=== PATIENT | male | born 1995 | race Caucasian/White ===

== ENCOUNTER 2023-05-21 23:52 | Inpatient (IN) | payer MEDICAID ==
[~2023-05-21] VITALS: Ht 188 cm; Wt 81.8 kg
[2023-05-22] MEDS: normal saline 1000ML IV soln IV ONE (01:42)
[2023-05-22] MEDS: piperacillin/tazo 3.375gm/50ml 50 ML IV ONE (01:42)
[2023-05-22] MEDS: VANCOMYCIN 1,500MG in normal saline IV soln 300 ML IV ONE (02:03)
[2023-05-22 02:08] LABS: BASOPHILS # (AUTO) 0.1 X10'3 (0-0.2); BASOPHILS % (AUTO) 0.4 % (0-1); EOSINOPHILS # (AUTO) 0.1 X10'3 (0-0.9); EOSINOPHILS % (AUTO) 1.1 % (0-6); HEMATOCRIT 35.5 % (42.0-52.0); HEMOGLOBIN 11.8 g/dl (14.0-17.9); LYMPHOCYTES % (AUTO) 16.7 % (21-51); MEAN CORPUSCULAR HEMOGLOBIN 29.3 PG (27.0-31.0); MEAN CORPUSCULAR HGB CONC 33.2 g/dL (33.0-36.5); MEAN CORPUSCULAR VOLUME 88.1 FL (78-98); MEAN PLATELET VOLUME 7.2 FL (7.4-10.4); MONOCYTES # (AUTO) 1.5 X10'3 (0-0.9); MONOCYTES % (AUTO) 12.7 % (2-12); NEUTROPHILS # (AUTO) 8.1 X10'3 (1.8-7.7); NEUTROPHILS % (AUTO) 69.1 % (42-75); PLATELET COUNT 352 X10'3 (140-440); RED BLOOD COUNT 4.03 X10'6 (4.70-6.10); RED CELL DISTRIBUTION WIDTH 12.5 % (11.5-14.5); WHITE BLOOD COUNT 11.7 X10'3 (4.5-11.0)
[2023-05-22 02:41] LABS: ALBUMIN 2.3 G/DL (3.4-5.0); ANION GAP 8 (8-16); BLOOD UREA NITROGEN 7 MG/DL (7-18); BUN/CREATININE RATIO 7.2 (10.0-20.0); C-REACTIVE PROTEIN 5.07 MG/DL (0.0-0.5); CALCIUM 8.3 MG/DL (8.5-10.1); CHLORIDE 105 MMOL/L (99-107); CREATININE 0.97 MG/DL (0.60-1.10); GLUCOSE 103 MG/DL (70-104); MAGNESIUM 1.8 MG/DL (1.5-2.4); POTASSIUM 3.4 MMOL/L (3.5-5.1); SODIUM 141 MMOL/L (135-145); TOTAL CARBON DIOXIDE 28.1 MMOL/L (24-32); eCRCL 129 ML/MIN; eGFR > 90 ML/MIN
[2023-05-22] MEDS ORDERED: magnesium 2GM in 50ml NS 50 ML IV PRN (04:10)
[2023-05-22] MEDS ORDERED: magnesium hydroxide 30ml (MOM) UD suspension PO PRN (04:10)
[2023-05-22] MEDS ORDERED: magnesium Cl slow-release 64mg tablet PO PRN (04:10)
[2023-05-22] MEDS ORDERED: mag hydrox/Alum hydrox/simeth 30ml oral suspension PO PRN (04:10)
[2023-05-22] MEDS ORDERED: acetaminophen 325mg tablet PO PRN (04:10)
[2023-05-22] MEDS ORDERED: ondansetron/PF 4mg/2ml inj IV PRN (04:10)
[2023-05-22] MEDS ORDERED: potassium Cl 20 mEq SR tablet PO PRN (04:10)
[2023-05-22] MEDS ORDERED: magnesium 4gm in 100ml NS 100 ML IV PRN (04:10)
[2023-05-22] MEDS: normal saline 1000ml 1,000 ML IV SCH (04:25)
[2023-05-22 05:59] LABS: BILIRUBIN,URINE NEGATIVE (Neg); CLARITY,URINE CLEAR (Clear); COLOR,URINE STRAW (Yellow); GLUCOSE, URINE NEGATIVE (Neg); KETONES,URINE NEGATIVE (Neg); LEUKOCYTE ESTERASE ,URINE NEGATIVE (Neg); NITRITES, URINE NEGATIVE (Neg); OCCULT BLOOD,URINE NEGATIVE (Neg); PROTEIN,URINE NEGATIVE (Neg); UROBILINOGEN,URINE 0.2 E.U/dL (0.2-1.0)
[2023-05-22 06:04] LABS: UA COLLECTION TYPE CLN CATCH MIDSTREAM
[2023-05-22 06:07] LABS: URINE AMPHETAMINE SCREEN POSITIVE (Neg); URINE BARBITUATE SCREEN NEGATIVE (Neg); URINE BENZODIAZEPINES SCREEN NEGATIVE (Neg); URINE CANNABINOID SCREEN NEGATIVE (Neg); URINE COCAINE SCREEN NEGATIVE (Neg); URINE METHADONE SCREEN NEGATIVE (Neg); URINE OPIATE SCREEN NEGATIVE (Neg); URINE PHENCYCLIDINE SCREEN NEGATIVE (Neg)
[2023-05-22] MEDS: docusate sod 100mg capsule PO SCH (08:00)
[2023-05-22] MEDS: heparin, porcine 5000 units/ml vial SQ SCH (08:00)
[2023-05-22] MEDS: potassium Cl 40MEQ/1/2NS 520ml 520 ML IV PRN (08:17)
[2023-05-22] MEDS: K and/or MAG REPLACEMENT MC SCH (08:18)
[2023-05-22] MEDS: piperacillin/tazo 4.5gm/100ml 100 ML IV SCH (10:00)
[2023-05-22] MEDS: vancomycin/NS 1 GM ADD-VANTAGE 250 ML IV SCH (10:16)
[2023-05-22 13:03] VITALS: BP 148/78; PULSE 75; RESP 16; TEMP 98.3; O2SAT 99
[2023-05-22 16:44] VITALS: BP 140/85; PULSE 87; RESP 16; O2SAT 97
[2023-05-22 17:10] VITALS: RESP 16
[2023-05-22 18:00] VITALS: BP 134/80; PULSE 86; RESP 15; TEMP 98; O2SAT 96
[2023-05-22 20:00] VITALS: RESP 17; O2SAT 99
[2023-05-22 21:47] VITALS: BP 144/74; PULSE 87; RESP 16; TEMP 99.8; O2SAT 99
[2023-05-23] VITALS (19 sets, daily range): BP systolic 105–138; BP diastolic 42–79; PULSE 53–85; RESP 14–18; TEMP 97.8–98; O2SAT 95–99
[2023-05-23] MEDS: morphine 2 MG/ML inj. syringe IV PRN ×2 (05:27→11:12)
[2023-05-23] MEDS ORDERED: LEVE10006 PO (05:46)
[2023-05-23 07:12] LABS: BASOPHILS % (AUTO) 0.6 % (0-1); EOSINOPHILS # (AUTO) 0.5 X10'3 (0-0.9); EOSINOPHILS % (AUTO) 7.2 % (0-6); HEMATOCRIT 38.3 % (42.0-52.0); HEMOGLOBIN 12.7 g/dl (14.0-17.9); LYMPHOCYTES # (AUTO) 1.3 X10'3 (1.1-4.8); LYMPHOCYTES % (AUTO) 19.6 % (21-51); MEAN CORPUSCULAR HEMOGLOBIN 29.5 PG (27.0-31.0); MEAN CORPUSCULAR HGB CONC 33.2 g/dL (33.0-36.5); MEAN CORPUSCULAR VOLUME 88.7 FL (78-98); MEAN PLATELET VOLUME 7.3 FL (7.4-10.4); MONOCYTES # (AUTO) 0.6 X10'3 (0-0.9); MONOCYTES % (AUTO) 9.1 % (2-12); NEUTROPHILS # (AUTO) 4.1 X10'3 (1.8-7.7); NEUTROPHILS % (AUTO) 63.5 % (42-75); PLATELET COUNT 390 X10'3 (140-440); RED BLOOD COUNT 4.31 X10'6 (4.70-6.10); RED CELL DISTRIBUTION WIDTH 12.3 % (11.5-14.5); WHITE BLOOD COUNT 6.5 X10'3 (4.5-11.0)
[2023-05-23 07:17] LABS: INR 1.1 INR; PROTHROMBIN TIME 11.5 SECONDS (9.0-12.0)
[2023-05-23 07:27] LABS: ALANINE AMINOTRANSFERASE 12 U/L (12-78); ALBUMIN 2.3 G/DL (3.4-5.0); ALBUMIN/GLOBULIN RATIO 0.5 (1.1-1.5); ALKALINE PHOSPHATASE 80 IU/L (46-116); ANION GAP 5 (8-16); ASPARTATE AMINO TRANSFERASE 14 U/L (10-37); BILIRUBIN,TOTAL 0.6 MG/DL (0.1-1.0); BLOOD UREA NITROGEN 6 MG/DL (7-18); BUN/CREATININE RATIO 6.5 (10.0-20.0); CALCIUM 8.5 MG/DL (8.5-10.1); CHLORIDE 103 MMOL/L (99-107); CREATININE 0.93 MG/DL (0.60-1.10); GLUCOSE 85 MG/DL (70-104); MAGNESIUM 1.8 MG/DL (1.5-2.4); PHOSPHORUS 3.5 MG/DL (2.3-4.5); POTASSIUM 3.4 MMOL/L (3.5-5.1); SODIUM 138 MMOL/L (135-145); TOTAL CARBON DIOXIDE 29.8 MMOL/L (24-32); eCRCL 134 ML/MIN; eGFR > 90 ML/MIN
[2023-05-23] MEDS: VANCOMYCIN LEVEL IV ONE ×2 (09:42→20:43)
[2023-05-23] MEDS: levetiracetam inj 1,000 MG in normal saline 100ml IV soln 100 ML IV SCH (13:15)
[2023-05-23] MEDS ORDERED: fentaNYL/PF 50MCG/1 ML 2ML syringe IV PRN ×2 (16:35)
[2023-05-23] MEDS: ringers solution, lacted 1,000 ML IV SCH (16:35)
[2023-05-23] MEDS ORDERED: hydrALAZINE 20mg/ml inj. IV PRN (16:35)
[2023-05-23] MEDS ORDERED: morphine 4 MG/ML inj SYRINge IV PRN (16:35)
[2023-05-23] MEDS ORDERED: ondansetron/PF 4mg/2ml inj IV PRN (16:35)
[2023-05-23] MEDS ORDERED: labetalol 20mg/4ml (5mg/ml) syringe IV PRN (16:35)
[2023-05-23] MEDS ORDERED: morphine 2 MG/ML inj. syringe IV PRN (16:35)
[2023-05-23] MEDS ORDERED: vancomycin 1,000mg inj ONE (17:16)
[2023-05-23] MEDS ORDERED: sevoflurane 250ml liquid IH ONE (17:35)
[2023-05-23] MEDS ORDERED: fentaNYL/PF 50MCG/1 ML 2ML syringe ONE (17:45)
[2023-05-23] MEDS ORDERED: midazolam 1 mg/ML 2ml injection ONE (17:47)
[2023-05-23] MEDS ORDERED: propofol inj 20 ML IV ONE (17:52)
[2023-05-23] MEDS ORDERED: ondansetron/PF 4mg/2ml inj ONE (17:52)
[2023-05-23] MEDS ORDERED: LIDOcaine 1%/PF 5ML 10 MG/ML VIAL ONE (17:52)
[2023-05-23] MEDS: potassium Cl 20 mEq SR tablet PO PRN (20:28)
[2023-05-23] MEDS: nicotine 14mg patch - 24hr TD SCH (20:34)
[2023-05-23] MEDS: hydrocortisone 2.5% cream 28.4gm TP SCH (21:16)
[2023-05-24 02:00] VITALS: BP 119/60; PULSE 70; RESP 18; TEMP 98.7; O2SAT 97
[2023-05-24 06:47] LABS: BASOPHILS % (AUTO) 0.1 % (0-1); EOSINOPHILS % (AUTO) 0 % (0-6); LYMPHOCYTES % (AUTO) 10.7 % (21-51); MEAN CORPUSCULAR HEMOGLOBIN 29.4 PG (27.0-31.0); MEAN CORPUSCULAR HGB CONC 33.4 g/dL (33.0-36.5); MEAN CORPUSCULAR VOLUME 88.2 FL (78-98); MEAN PLATELET VOLUME 7.3 FL (7.4-10.4); MONOCYTES # (AUTO) 0.4 X10'3 (0-0.9); MONOCYTES % (AUTO) 4.1 % (2-12); NEUTROPHILS # (AUTO) 7.6 X10'3 (1.8-7.7); NEUTROPHILS % (AUTO) 85.1 % (42-75); PLATELET COUNT 464 X10'3 (140-440); RED BLOOD COUNT 4.42 X10'6 (4.70-6.10); RED CELL DISTRIBUTION WIDTH 12.2 % (11.5-14.5); WHITE BLOOD COUNT 8.9 X10'3 (4.5-11.0)
[2023-05-24 06:54] VITALS: RESP 16
[2023-05-24 06:56] LABS: ALANINE AMINOTRANSFERASE 11 U/L (12-78); ALBUMIN 2.2 G/DL (3.4-5.0); ALBUMIN/GLOBULIN RATIO 0.5 (1.1-1.5); ALKALINE PHOSPHATASE 80 IU/L (46-116); ANION GAP 6 (8-16); ASPARTATE AMINO TRANSFERASE 9 U/L (10-37); BILIRUBIN,TOTAL 0.3 MG/DL (0.1-1.0); BLOOD UREA NITROGEN 11 MG/DL (7-18); BUN/CREATININE RATIO 12.5 (10.0-20.0); CALCIUM 8.3 MG/DL (8.5-10.1); CHLORIDE 104 MMOL/L (99-107); CREATININE 0.88 MG/DL (0.60-1.10); GLUCOSE 158 MG/DL (70-104); MAGNESIUM 1.7 MG/DL (1.5-2.4); PHOSPHORUS 2.3 MG/DL (2.3-4.5); POTASSIUM 3.7 MMOL/L (3.5-5.1); SODIUM 139 MMOL/L (135-145); TOTAL CARBON DIOXIDE 29.2 MMOL/L (24-32); TOTAL PROTEIN 6.9 G/DL (6.4-8.2); eCRCL 142 ML/MIN; eGFR > 90 ML/MIN
[2023-05-24] MEDS: nicotine 14mg patch - 24hr TD SCH (08:37)
[2023-05-24] MEDS: VANCOMYCIN LEVEL IV ONE (09:55)
[2023-05-24] MEDS: VANCOmycin 1250MG/NS 250ml Bag 250 ML IV SCH (10:28)
[2023-05-24] MEDS ORDERED: HYDR-3965 PO (11:59)
[2023-05-24] MEDS ORDERED: AMOX-580 PO (11:59)
== END 2023-05-24 12:50 | disposition home or self-care (01) | DRG 710 ==
LOC: ER 23:53 → ED HOLD 05-22 04:17 → ORTHO 4S 05-22 17:00
PROVIDERS: ADMIT Internal Medicine Critical Care Medicine; ATTEND Family Medicine
PROC: 0QPGX5Z Removal of External Fixation Device from Right Tibia, External Approach (ICD-10-PCS; 2023-05-23)
PROC: 0KBV0ZZ Excision of Right Foot Muscle, Open Approach (ICD-10-PCS; principal; 2023-05-23 17:35)
DX: A41.9 Sepsis, unspecified organism (principal); J18.9 Pneumonia, unspecified organism; R65.20 Severe sepsis without septic shock; L03.115 Cellulitis of right lower limb; T42.6X6A Underdosing of other antiepileptic and sedative-hypnotic drugs, initial encounter; F15.129 Other stimulant abuse with intoxication, unspecified; F11.129 Opioid abuse with intoxication, unspecified; M86.8X7 Other osteomyelitis, ankle and foot; L02.611 Cutaneous abscess of right foot; Y92.89 Other specified places as the place of occurrence of the external cause
CPT/HCPCS: 36415; 71045; 73590; 73630; 73700; 76000; 80048; 80053; 80202; 80305; 81003; 82948; 83605; 83735; 84100; 84145; 85025; 85610; 85651; 86140; 87040; 87070; 87075; 87077; 87081; 87186; 93005; 96365; 96375; 99285; A4618; A6222; A6223; A6253; A6258; A6266; A6446; A6449; A7000; G0378; J1100; J1644; J1953; J2250; J2270; J2405; J2543; J2704; J3010; J3370; J3480; J3490; J7030; J7040